=== PATIENT | male | born 1945 | race Caucasian/White ===

== ENCOUNTER 2017-02-11 15:16 | Outpatient (CLI) | payer MEDICARE, OTHER ==
--- NOTE | 2017-02-11 16:07 | RAD ---
CHEST TWO VIEWS: 02/11/17 HISTORY: Pyothorax without fistula. COMPARISON: None. FINDINGS: Limited evaluation of the left hemithorax reveals opacification secondary to pleural effusion. There appears to be a loculated component of effusion along the lateral aspect of the left hemithorax. Ther e are parenchymal changes in the left lung base. The cardiac silhouette appears to be at the upper l imits of normal. Pulmonary vessels are normal. Right costophrenic angle is clear. Patchy interstitial opacities. No pneumothorax. There appears to be left rib fractures. IMPRESSION: Pleural effusion in the left hemithorax. Adjacent parenchymal changes in the left lung base cannot be excluded. A component of loculated pleural fluid is suspected. POS: [facility]
== END 2017-02-11 15:17 | disposition home or self-care (01) ==
LOC: RAD 15:16
PROVIDERS: ATTEND Thoracic Surgery (Cardiothoracic Vascular Surgery)
DX: J86.9 Pyothorax without fistula (principal); J90 Pleural effusion, not elsewhere classified
CPT/HCPCS: 71020